=== PATIENT | female | born 1965 | race Two or more races ===

== ENCOUNTER 2019-08-22 22:03 | Emergency (ER) | payer BC ==
[~2019-08-22] VITALS: Ht 167.6 cm; Wt 80.8 kg
[2019-08-22] MEDS ORDERED: ONDANSETRON 2MG/ML, 2ML IVPush ONE (22:30)
[2019-08-22] MEDS ORDERED: MORPHINE SULFATE 4 MG/ML, 1ML IVPush PRN (22:30)
[2019-08-22] MEDS ORDERED: ONDANSETRON 2MG/ML, 2ML ONE (22:33)
[2019-08-22] MEDS ORDERED: MORPHINE SULFATE 4 MG/ML, 1ML ONE (22:34)
--- NOTE | 2019-08-22 22:47 | NUR ---
Pt presents to ed c/o LLQ abd pain and L flank painx2 weeks. States pain upon palpation. +nausea/-vomiting. Denies gu s/s. Monitoring applied. Vss. Call light within reach. Awaiting lab results for ct.
[2019-08-22 22:48] LABS: BASOPHILS # (AUTO) 0.01 x10^3/uL (0-0.1); BASOPHILS % (AUTO) 0 % (0-1); EOSINOPHILS # (AUTO) 0.22 x10^3/uL (0-0.4); EOSINOPHILS % (AUTO) 2 % (1-7); LYMPHOCYTES # (AUTO) 2.95 x10^3/uL (1-3.4); LYMPHOCYTES % (AUTO) 29 % (22-44); MD NO; MEAN CORPUSCULAR HGB CONC 33.3 g/dL (32.4-35.8); MEAN CORPUSCULAR VOLUME 96.1 fL (80-100); MEAN PLATELET VOLUME 8.1 fL (7.4-10.4); MONOCYTES # (AUTO) 0.64 x10^3/uL (0.2-0.8); MONOCYTES % (AUTO) 6 % (2-9); NEUTROPHILS # (AUTO) 6.23 x10^3/uL (1.8-6.8); NEUTROPHILS % (AUTO) 62 % (42-75); PLATELET COUNT 268 x10^3/uL (130-400); RED BLOOD COUNT 4.45 x10^6/uL (3.82-5.3); RED CELL DISTRIBUTION WIDTH 12.1 % (9.6-15.2)
[2019-08-22 22:59] LABS: ALANINE AMINOTRANSFERASE 16 U/L (12-78); ALBUMIN 3.7 g/dL (3.4-5.0); ANION GAP 7 mmol/L (5-15); CALCIUM 8.6 mg/dL (8.5-10.1); CHLORIDE 111 mmol/L (98-107)
[2019-08-22 23:04] LABS: ALKALINE PHOSPHATASE 77 U/L (45-117); BILIRUBIN,TOTAL 0.2 mg/dL (0.2-1.0); CREATININE 0.59 mg/dL (0.55-1.02); TOTAL PROTEIN 7.5 g/dL (6.4-8.2)
[2019-08-22] MEDS ORDERED: OMNIPAQUE 350 MG/ML, 100ML BOTTLE ONE (23:24)
[2019-08-22 23:43] VITALS: BP 111/72
--- NOTE | 2019-08-22 23:43 | NUR ---
Pt states relief from pain. No immediate needs. Ua sent to lab.
[2019-08-23 00:01] LABS: MICROSCOPIC AUTO
[2019-08-23 00:03] LABS: CULTURE INDICATED? YES
--- NOTE | 2019-08-23 00:14 | NUR ---
All results back. Pt up for recheck.
== END 2019-08-23 00:36 | disposition home or self-care (01) ==
LOC: ED 22:50
DX: R10.31 Right lower quadrant pain (principal); R11.0 Nausea; K59.00 Constipation, unspecified
CPT/HCPCS: 36415; 74177; 80053; 81001; 83690; 84703; 85025; 87086; 96374; 96375; 99284; J2270; J2405; Q9967; 99283

== ENCOUNTER 2019-09-23 20:06 | Emergency (ER) | payer BC ==
[~2019-09-23] VITALS: Ht 172.7 cm; Wt 79.5 kg
[2019-09-23 21:00] LABS: MICROSCOPIC AUTO
[2019-09-23] MEDS ORDERED: SODIUM CHLORIDE FLUSH 10ML SYR IVF ONE (21:00)
[2019-09-23 21:02] LABS: CULTURE INDICATED? YES
[2019-09-23 21:48] LABS: BASOPHILS # (AUTO) 0.03 x10^3/uL (0-0.1); BASOPHILS % (AUTO) 0 % (0-1); EOSINOPHILS # (AUTO) 0.12 x10^3/uL (0-0.4); EOSINOPHILS % (AUTO) 1 % (1-7); LYMPHOCYTES # (AUTO) 2.72 x10^3/uL (1-3.4); LYMPHOCYTES % (AUTO) 31 % (22-44); MD NO; MEAN CORPUSCULAR HEMOGLOBIN 31.7 pg (27.0-34.8); MEAN CORPUSCULAR HGB CONC 33.6 g/dL (32.4-35.8); MEAN CORPUSCULAR VOLUME 94.5 fL (80-100); MONOCYTES # (AUTO) 0.71 x10^3/uL (0.2-0.8); MONOCYTES % (AUTO) 8 % (2-9); NEUTROPHILS # (AUTO) 5.19 x10^3/uL (1.8-6.8); NEUTROPHILS % (AUTO) 59 % (42-75); PLATELET COUNT 261 x10^3/uL (130-400); RED BLOOD COUNT 4.35 x10^6/uL (3.82-5.3)
[2019-09-23 21:56] LABS: ALANINE AMINOTRANSFERASE 17 U/L (12-78); ALBUMIN 3.7 g/dL (3.4-5.0); ANION GAP 5 mmol/L (5-15); CALCIUM 8.8 mg/dL (8.5-10.1); CHLORIDE 110 mmol/L (98-107); CREATININE 0.68 mg/dL (0.55-1.02)
[2019-09-23 21:58] LABS: ALKALINE PHOSPHATASE 78 U/L (45-117); BILIRUBIN,TOTAL 0.3 mg/dL (0.2-1.0); TOTAL PROTEIN 7.6 g/dL (6.4-8.2)
--- NOTE | 2019-09-23 23:55 | NUR ---
VS RE-DONE
[2019-09-24] MEDS ORDERED: MORPHINE SULFATE 4 MG/ML, 1ML IVPush PRN (01:00)
[2019-09-24] MEDS ORDERED: ONDANSETRON 2MG/ML, 2ML IVPush ONE (01:00)
--- NOTE | 2019-09-24 01:05 | NUR ---
THIS IS A 54Y F THAT COMES IN W/ C/O ABD PAIN [id number]. PT STS IT IS WORSE TODAY. PT HAS GI APT 10/11/19. PT CONNECTED TO ALL MONITORING VSS, MARQUEZ
--- NOTE | 2019-09-24 01:09 | NUR ---
PT TO CT
[2019-09-24] MEDS ORDERED: ONDANSETRON 2MG/ML, 2ML ONE (01:36)
[2019-09-24] MEDS ORDERED: MORPHINE SULFATE 4 MG/ML, 1ML ONE (01:36)
[2019-09-24 01:39] VITALS: BP 103/53
--- NOTE | 2019-09-24 01:41 | NUR ---
TASK RN: PT AMBULATED STEADILY TO RESTROOM. UPON RETURN, PT MEDICATED PER EMAR FOR NAUSEA AND 8/10 PAIN. DAUGHTER AT BEDSIDE. AWAITING CT RESULTS
--- NOTE | 2019-09-24 02:59 | NUR ---
Patient/Caregiver given discharge instructions and they have confirmed that they understand the instructions. Patient ambulatory with steady gait.
[2019-09-24] MEDS ORDERED: OMNIPAQUE 350 MG/ML, 100ML BOTTLE ONE (21:00)
== END 2019-09-24 02:59 | disposition home or self-care (01) ==
LOC: ED 09-24 00:13
DX: R10.11 Right upper quadrant pain (principal)
CPT/HCPCS: 36415; 74177; 76700; 80053; 81001; 83690; 85025; 87086; 96374; 96375; 99284; J2270; J2405; Q9967

== ENCOUNTER → 2019-10-08 | Outpatient (CLI) | payer BC ==
[~2019-10-08] MED LIST: SINCALIDE (KINEVAC) 5 MCG ONE
== END | disposition home or self-care (01) ==
LOC: RAD 11:29
PROVIDERS: ATTEND Emergency Medicine
DX: R10.11 Right upper quadrant pain (principal)
CPT/HCPCS: 78227; A9537; J2805

== ENCOUNTER 2019-11-04 13:14 | Outpatient (CLI) | payer BC ==
[2019-11-04] MEDS ORDERED: antibiotic PO (13:52)
[2019-11-04] MEDS ORDERED: MULT-658 PO (13:52)
[2019-11-04] MEDS ORDERED: FISH1CAP PO (13:52)
== END 2019-11-04 23:59 | disposition home or self-care (01) ==
LOC: STAR 13:14
PROVIDERS: ATTEND Surgery
DX: Z02.9 Encounter for administrative examinations, unspecified (principal)

== ENCOUNTER 2019-11-08 06:13 | Day surgery (SDC) | payer BC ==
[~2019-11-08] VITALS: Ht 170.2 cm; Wt 76.0 kg
[~2019-11-08 06:13] MED LIST changes: +FISH1CAP PO; +MULT-658 PO; -SINCALIDE (KINEVAC) 5 MCG ONE; +antibiotic PO
[2019-11-08] MEDS ORDERED: BUPIVACAINE/PF-EPI 0.5% 1:200K ONE (06:32)
[2019-11-08] MEDS ORDERED: LACTATED RINGERS 1,000 ML IV SCH (06:56)
[2019-11-08] MEDS ORDERED: DICY20TA3 PO (06:58)
[2019-11-08] MEDS ORDERED: LIDOCAINE-MPF 1%, 2ML INFIL ONE (07:00)
[2019-11-08 07:01] VITALS: BP 140/80
[2019-11-08] MEDS ORDERED: FENTANYL PF 250 MCG/5ML ONE (07:24)
[2019-11-08] MEDS ORDERED: MIDAZOLAM 1 MG/ML, 2ML ONE (07:24)
[2019-11-08] MEDS ORDERED: SUCCINYLCHOLINE 20 MG/ML, 10ML ONE (08:08)
[2019-11-08] MEDS ORDERED: DEXAMETHASONE 4 MG/ML, 1ML ONE (08:08)
[2019-11-08] MEDS ORDERED: ROCURONIUM 10MG/ML,5ML ONE (08:08)
[2019-11-08] MEDS ORDERED: PROPOFOL 10 MG/ML, 20ML ONE (08:08)
[2019-11-08] MEDS ORDERED: ONDANSETRON 2MG/ML, 2ML ONE (08:08)
[2019-11-08] MEDS ORDERED: HYDROmorphone 1 MG/ML, 1ML INJ IV PRN (08:30)
[2019-11-08] MEDS ORDERED: KETOROLAC 30 MG/1 ML IV PRN (08:30)
[2019-11-08] MEDS ORDERED: ONDANSETRON 2MG/ML, 2ML IVPush PRN (08:30)
[2019-11-08] MEDS ORDERED: LABETALOL 5MG/ML, 20ML IV PRN (08:30)
[2019-11-08] MEDS ORDERED: MEPERIDINE/PF 25MG/0.5ML IVPush PRN (08:30)
[2019-11-08] MEDS ORDERED: hydrALAzine 20 MG/ML, 1ML IV PRN (08:30)
[2019-11-08] MEDS ORDERED: DIAZEPAM 5 MG/ML, 2ML IV PRN ×2 (08:30)
[2019-11-08] MEDS ORDERED: METOCLOPRAMIDE 5 MG/ML, 2ML IV PRN (08:30)
[2019-11-08] MEDS ORDERED: PROMETHAZINE 25 MG/ML, 1ML IV PRN (08:30)
[2019-11-08] MEDS ORDERED: ALBUTEROL SULFATE 2.5 MG/3 ML NPPB PRN (08:30)
[2019-11-08] MEDS ORDERED: OXYcodone 5 MG/5 ML ORAL.SOL UDC PO PRN (08:30)
[2019-11-08] MEDS ORDERED: BUPIVACAINE/PF-EPI 0.5% 1:200K INFIL ONE ×2 (08:31→08:42)
[2019-11-08] MEDS ORDERED: FENTANYL PF 100 MCG/2ML ONE (09:05)
[2019-11-08] MEDS ORDERED: OXYcodone 5 MG/5 ML ORAL.SOL UDC ONE (09:06)
[2019-11-08] MEDS: FENTANYL PF 100 MCG/2ML IV PRN ×3 (09:10→09:36)
[2019-11-08] MEDS ORDERED: MEPERIDINE/PF 25MG/ML,1ML ONE (09:41)
== END 2019-11-08 13:15 | disposition home or self-care (01) ==
LOC: OUT 06:13
PROVIDERS: ATTEND Surgery
DX: K81.1 Chronic cholecystitis (principal); K82.8 Other specified diseases of gallbladder; J45.909 Unspecified asthma, uncomplicated; E78.5 Hyperlipidemia, unspecified; Z88.0 Allergy status to penicillin; Z90.710 Acquired absence of both cervix and uterus; Z80.9 Family history of malignant neoplasm, unspecified
CPT/HCPCS: 47562; 88304; J0330; J1100; J2175; J2250; J2405; J2704; J3010; J7120

== ENCOUNTER 2019-11-11 01:58 | Emergency (ER) | payer BC ==
[~2019-11-11] VITALS: Ht 170.2 cm; Wt 75.7 kg
[~2019-11-11 01:58] MED LIST changes: +DICY20TA3 PO
[2019-11-11 02:07] VITALS: BP 117/75
--- NOTE | 2019-11-11 02:07 | NUR ---
not in lobby.
--- NOTE | 2019-11-11 02:16 | NUR ---
PT WHEELED FROM TRIAGE TO ROOM BY DWAYNE Gifford
[2019-11-11] MEDS ORDERED: SODIUM CHLORIDE 0.9% 1,000ML IVBOLUS ONE (02:30)
[2019-11-11] MEDS ORDERED: ONDANSETRON 2MG/ML, 2ML IVPush ONE ×2 (02:30→07:00)
[2019-11-11] MEDS ORDERED: SODIUM CHLORIDE FLUSH 10ML SYR IVF ONE (02:30)
[2019-11-11] MEDS ORDERED: MORPHINE SULFATE 4 MG/ML, 1ML ONE ×2 (02:34→03:27)
[2019-11-11] MEDS ORDERED: ONDANSETRON 2MG/ML, 2ML ONE ×2 (02:34→06:29)
[2019-11-11] MEDS: MORPHINE SULFATE 4 MG/ML, 1ML IVPush PRN ×2 (02:48→03:28)
--- NOTE | 2019-11-11 02:48 | NUR ---
PT MEDICATED PER MAR AT THIS TIME.
[2019-11-11] MEDS ORDERED: PINK LADY ENEMA 490 ML BOTTLE PR ONE (03:30)
[2019-11-11] MEDS ORDERED: METHYLNALTREXONE 12 MG/0.6 ML SYR SQ ONE ×2 (03:30→04:34)
[2019-11-11] MEDS ORDERED: KETAMINE 10 MG/ML, 20ML ONE (03:37)
[2019-11-11] MEDS ORDERED: KETAMINE 10 MG/ML, 20ML IV ONE (04:00)
--- NOTE | 2019-11-11 04:01 | NUR ---
PT AND FAMILY EDUCATED ON NEED FOR MANUAL DISIMPACTION WITH MODERATE SEDATION. ROOM PREPARED FOR PROCEDURAL SEDATION. INFORMED CONSENT GIVEN AT BS TO PT AND FAMILY BY DR. AQUINO. PT SIGNATURES OBTAINED AT THIS TIME. IV PATENCY CONFIRMED AT THIS TIME. FAMILY AT BS AND AWAITING DR AQUINO FOR PROCEDURE TO COMMENCE.
--- NOTE | 2019-11-11 04:32 | NUR ---
PT MEDICATED PER MAR FOR MODERATE SEDATION BY DR AQUINO AT . PT TOLERATED PROCEDURE WELL. FAMILY IS BACK WITH PT AT BS WHILE PT RECOVERS FROM SEDATION. FAMILY QUESTIONS ANSWERED AND EDUCATION PROVIDED AT THIS TIME.
--- NOTE | 2019-11-11 07:00 | NUR ---
report received from vanessa jo.
--- NOTE | 2019-11-11 07:08 | NUR ---
Patient given discharge instructions and they have confirmed that they understand the instructions.
== END 2019-11-11 07:09 | disposition home or self-care (01) ==
LOC: ED 05:58
DX: K56.41 Fecal impaction (principal); K59.00 Constipation, unspecified; R10.84 Generalized abdominal pain; R11.0 Nausea; Z90.49 Acquired absence of other specified parts of digestive tract; Z90.710 Acquired absence of both cervix and uterus
CPT/HCPCS: 74022; 96372; 96374; 96375; 96376; 99285; J2270; J2405; J7030

== ENCOUNTER 2020-07-19 15:50 | Emergency (ER) | payer BC ==
[~2020-07-19] VITALS: Ht 170.2 cm; Wt 75.0 kg
[2020-07-19] MEDS ORDERED: ACETAMINOPHEN 500 MG TABLET ONE (16:29)
[2020-07-19] MEDS ORDERED: ACETAMINOPHEN 500 MG TABLET PO ONE (16:30)
--- NOTE | 2020-07-19 16:49 | NUR ---
PT C/O COVID HIGH FEVER, CHILLS, HEADACHE, NAUSEA, AND GENERAL WEAKNESS. POSITIVE COVID RESULTS TODAY. OPT DENIES VOMITING OR DIARRHEA. PT DENIES ABD OR CHEST PAIN. PT HAS INTERMITTANT SOB. PER DAUGHTER THE SYMPTOMS WORSENED TODAY.
[2020-07-19 16:50] LABS: BASOPHILS % (AUTO) 0 % (0-1); EOSINOPHILS % (AUTO) 1 % (1-7); LYMPHOCYTES % (AUTO) 16 % (22-44); MEAN CORPUSCULAR HEMOGLOBIN 32.3 pg (27.0-34.8); MEAN CORPUSCULAR HGB CONC 34.5 g/dL (32.4-35.8); MEAN PLATELET VOLUME 7.8 fL (7.4-10.4); MONOCYTES % (AUTO) 6 % (2-9); NEUTROPHILS % (AUTO) 76 % (42-75); PLATELET COUNT 255 x10^3/uL (130-400); RED BLOOD COUNT 4.85 x10^6/uL (3.82-5.3)
[2020-07-19 16:58] LABS: MD NO
[2020-07-19] MEDS ORDERED: [UNRECOGNIZED DRUG - REMARK] MC SCH (17:00)
[2020-07-19 17:14] LABS: ANION GAP 6 mmol/L (5-15); BILIRUBIN,TOTAL 0.4 mg/dL (0.2-1.0); CALCIUM 8.4 mg/dL (8.5-10.1); CHLORIDE 105 mmol/L (98-107); CREATININE 0.72 mg/dL (0.55-1.02)
[2020-07-19 17:15] LABS: ALANINE AMINOTRANSFERASE 18 U/L (12-78); ALBUMIN 3.7 g/dL (3.4-5.0); ALKALINE PHOSPHATASE 88 U/L (45-117); C-REACTIVE PROTEIN, QUANT 4.96 mg/dL (0.02-0.49); TOTAL PROTEIN 8.2 g/dL (6.4-8.2)
[2020-07-19] MEDS ORDERED: BAMLANIVIMAB 700 MG in SODIUM CHLORIDE 0.9% 180 ML IV ONE (18:00)
[2020-07-19] MEDS ORDERED: FILTER 0.22 MICRON IV ONE (18:00)
--- NOTE | 2020-07-19 18:08 | NUR ---
PT DAUGHTER PROVIDED HANDOUT REGARDING BAMLANIVIMAB.
[2020-07-19] MEDS ORDERED: KETOROLAC 30 MG/1 ML ONE (20:18)
--- NOTE | 2020-07-19 20:20 | NUR ---
RN STOPPED MEDICATION. NO SIGNS OF REACTION. WILL MONITOR FOR 1HR BEFORE DISCHARGE. PT FAMILY MEMBER CONCERNED ABOUT FEVER 101.3. RN NOTIFIED EDMD. TORADOL ORDERED. FAMILY MEMBER STATING SHE WANTS TEMP BELOW 100 PRIOR TO DISCHARGE B/C PT HOME THERMOMETER DIDN'T WORK. RN INFORMED FAMILY MEMBER THAT FEVER CAN COME BACK AND WILL NEED TO MONITORED AT HOME AND TREATED WITH TYLENOL OR MOTRIN.
[2020-07-19] MEDS ORDERED: KETOROLAC 30 MG/1 ML IVPush ONE (20:30)
[2020-07-19 20:47] VITALS: BP 104/65
--- NOTE | 2020-07-19 21:20 | NUR ---
PT TEMP IMPROVED 99.3. DAUGHTER INFORMED TO TAKE TYLENOL OR MOTRIN FOR FEVER CONTROL. PT TOLD TO CONTINUE DECADRON AND AZITHROMAX PRESCRIPTION MEDICATION AT HOME FROM URGENT CARE. TOLD TO NOT TAKE TAMIFLU. RN CONFIRMED PT INSTRUCTIONS WITH EDMD. RN INFORMED DAUGHTER TO MONITOR PT RESPIRATORY EFFECT AND FEVER. RN TOLD DAUGHTER TO BRING HER BACK IF FEVERS CANNOT BE MANAGED AT HOME OR PT SHOWS SIGNS OF WORSENING RESPIRATORY STATUS. DAUGHTER VERBALIZED UNDERSTANDING. VSS. AMBULATORY AT DISCHARGE.
== END 2020-07-19 22:08 | disposition home or self-care (01) ==
LOC: ED 17:28
DX: U07.1 COVID-19 (principal); J40 Bronchitis, not specified as acute or chronic; R06.00 Dyspnea, unspecified; R50.9 Fever, unspecified
CPT/HCPCS: 36415; 71045; 80053; 82728; 83605; 83615; 84145; 85025; 86140; 87040; 96365; 96375; 99284; J1885; J7050